=== PATIENT | female | born 1985 | race Caucasian/White ===

== ENCOUNTER 2022-02-27 18:48 | Emergency (ER) | payer BC, SELFPAY ==
--- NOTE | 2022-02-27 19:12 | ED.NURSE ---
Pt chose to leave after security requested she wear a mask. Did not sign refusal form. pt. left ambulatory from ER.
== END 2022-02-27 19:21 | disposition left against medical advice (07) ==
LOC: ED 19:17
PROVIDERS: Emergency Provider Emergency Medicine Emergency Medical Services; PCP Family Medicine
DX: Z53.21 Procedure and treatment not carried out due to patient leaving prior to being seen by health care provider (principal)
CPT/HCPCS: 99281

== ENCOUNTER 2022-06-28 11:33 | Outpatient (CLI) | payer OTHER, SELFPAY ==
[2022-06-28 18:10] LABS: Chloride* 101 mmol/L (96-114)
[2022-06-28 18:11] LABS: Potassium* 4.7 mmol/L (3.6-5.1); Sodium* 137 mmol/L (135-149)
[2022-06-28 18:13] LABS: Carbon Dioxide* 30 mmol/L (20-32); Cholesterol* 195 mg/dL (90-199); Creatinine* 0.6 mg/dL (0.5-1.5); Estimated Glomerular Filt Rate 118 ml/min
[2022-06-28 18:14] LABS: Blood Urea Nitrogen* 14 mg/dL (5-24); Glucose* 86 mg/dL (60-115); HDL Cholesterol* 88 mg/dL (>=50); LDL Cholesterol Calculated 95 mg/dL (<100); Triglycerides* 58 mg/dL (40-149)
== END 2022-06-28 11:34 | disposition home or self-care (01) ==
PROVIDERS: PCP Family Medicine; Visit Provider Family Medicine
DX: Z13.1 Encounter for screening for diabetes mellitus (principal); Z13.29 Encounter for screening for other suspected endocrine disorder; Z13.6 Encounter for screening for cardiovascular disorders
CPT/HCPCS: 80048; 80061; 84443